=== PATIENT | female | born 1950 ===

== ENCOUNTER 2024-06-30 12:45 | Inpatient (IN) | payer OTHER ==
[~2024-06-30] VITALS: Ht 167.6 cm; Wt 109.8 kg
[2024-06-30] MEDS ORDERED: JANUVIA25 MG PO (13:31)
[2024-06-30] MEDS ORDERED: FUROSEMIDE20 MG PO (13:31)
[2024-06-30] MEDS ORDERED: SIMVASTATIN40 MG PO (13:31)
[2024-06-30] MEDS ORDERED: PROTONIX40 MG PO (13:32)
[2024-06-30] MEDS ORDERED: SYNTHROID100 MCG PO (13:32)
[2024-06-30] MEDS ORDERED: COMBIGAN EYE DRO5 ML OP (13:33)
[2024-06-30] MEDS ORDERED: ALDACTONE100 MG PO (13:33)
[2024-07-06] MEDS ORDERED: METRONIDAZOLE/SODIUM CHLORIDE 500 MG/100 ML PIGGYBACK IV ONE (07:04)
[2024-07-06] MEDS ORDERED: BUPIVACAINE HCL/Mpf 0.5% 10ML VIAL ONE (07:04)
[2024-07-06] MEDS ORDERED: LIDOCAINE HCL 1%/EPINEPHRINE 20ML VIAL IJ ONE (07:04)
[2024-07-06] MEDS ORDERED: levoFLOXacin IN DEXTROSE 5 % 5 MG/ML PIGGYBAG IV ONE (09:15)
[2024-07-06] MEDS ORDERED: 0.9 % SODIUM CHLORIDE 1,000 ML IV SCH (10:00)
[2024-07-06] MEDS ORDERED: OxyCODONE HCL 5 MG TABLET (ROXICODONE) PO PRN (10:00)
[2024-07-06] MEDS ORDERED: MORPHINE SULFATE 4 MG/ML CARTRIDGE IV PRN (10:00)
[2024-07-06] MEDS ORDERED: ONDANSETRON HCL 2 MG/ML VIAL IV PRN (10:00)
[2024-07-06] MEDS ORDERED: DEXTROSE 50 % IN WATER 0.5 G/ML DISP.SYRIN IV PRN ×2 (10:00→13:00)
[2024-07-06 11:33] LABS: HEMATOCRIT 33.1 % (36.0-45.00); HEMOGLOBIN 10.5 g/dL (12.0-15.00); MEAN CELL VOLUME 88.5 fL (80.00-100.00); MEAN CORPUSCULAR HEMOGLOBIN 28.1 pg (27.00-32.0); MEAN CORPUSCULAR HGB CONC 31.7 g/dl (32.0-36.0); PLATELET COUNT 198 K/uL (150-450); RED BLOOD COUNT 3.74 M/uL (4.00-6.00); RED CELL DISTRIBUTION WIDTH 14.7 % (11.5-14.5)
[2024-07-06 12:54] LABS: CALCIUM 8.3 mg/dL (8.5-10.1); CREATININE SERUM 1.92 mg/dL (0.55-1.02); GFR 25.67; PHOSPHOROUS 3.5 mg/dL (2.5-4.9); POTASSIUM 4.51 mEq/L (3.5-5.1)
[2024-07-06 13:00] LABS: MAGNESIUM 1.4 mg/dL (1.8-2.4)
[2024-07-06] MEDS ORDERED: ENALAPRILAT DIHYDRATE 1.25 MG/ML VIAL IV PRN (13:00)
[2024-07-06] MEDS ORDERED: INSULIN LISPRO 1,000 UNIT/10 ML UNITS SUBCUTANEO PRN (13:00)
[2024-07-06] MEDS ORDERED: HYOSCYAMINE SULFATE 0.125 MG TAB.SUBL SL SCH (13:00)
[2024-07-06] MEDS ORDERED: SOD FERRIC GLUC COMPLX/SUCROSE 62.5 MG in 0.9 % SODIUM CHLORIDE 50 ML IV NR (13:30)
[2024-07-06] MEDS ORDERED: LEVALBUTEROL HCL 0.63 MG/3 ML SOLUTION IH SCH (14:00)
[2024-07-06] MEDS ORDERED: ACETAMINOPHEN 500 MG GEL..CAP PO SCH (14:00)
[2024-07-06 14:56] VITALS: O2SAT 93
[2024-07-06 15:01] LABS: ABG PH 7.348 (7.35-7.45); ABG PO2 63.1 mmHg (80-100); ABG pCO2 38.7 mmHg (35-45); BASE EXCESS -4.3 mmol/l; SaO2 90.1 %
[2024-07-06 15:02] LABS: BICARBONATE 20.8 mmol/l (23-25); allen test SATISFACTORY; o2 21 %; puncture site RADIAL RIGHT
[2024-07-06 16:25] VITALS: BP 146/83; O2SAT 94
[2024-07-06 16:56] VITALS: O2SAT 90
[2024-07-06] MEDS ORDERED: METRONIDAZOLE/SODIUM CHLORIDE 500 MG/100 ML PIGGYBACK IV SCH (17:00)
[2024-07-06] MEDS ORDERED: POLYETHYLENE GLYCOL 3350 17 GM BLIST.PACK PO SCH (17:00)
[2024-07-06] MEDS ORDERED: GABAPENTIN 300 MG CAPSULE PO SCH (17:00)
[2024-07-06 19:32] VITALS: O2SAT 92
[2024-07-06] MEDS ORDERED: FAMOTIDINE/PF 20 MG/2 ML VIAL IV PUSH SCH (21:00)
[2024-07-07] VITALS (9 sets, daily range): BP systolic 124–153; BP diastolic 73–83; O2SAT 94–100
[2024-07-07] MEDS ORDERED: LEVOTHYROXINE SODIUM 100 MCG TABLET PO SCH (06:00)
[2024-07-07 06:21] LABS: HEMATOCRIT 32.4 % (36.0-45.00); HEMOGLOBIN 10.6 g/dL (12.0-15.00); MEAN CELL VOLUME 87.8 fL (80.00-100.00); MEAN CORPUSCULAR HEMOGLOBIN 28.7 pg (27.00-32.0); MEAN CORPUSCULAR HGB CONC 32.7 g/dl (32.0-36.0); PLATELET COUNT 187 K/uL (150-450); RED BLOOD COUNT 3.68 M/uL (4.00-6.00); RED CELL DISTRIBUTION WIDTH 14.1 % (11.5-14.5)
[2024-07-07] MEDS ORDERED: hydrALAZINE HCL 20 MG VIAL IV PRN (08:45)
[2024-07-07] MEDS ORDERED: SPIRONOLACTONE 50 MG TABLET PO SCH (09:00)
[2024-07-07] MEDS ORDERED: SOD FERRIC GLUC COMPLX/SUCROSE 62.5 MG in 0.9 % SODIUM CHLORIDE 50 ML IV SCH (09:00)
[2024-07-07 12:16] LABS: ALBUMIN 3.1 gm/dL (3.4-5.0); CALCIUM 8.4 mg/dL (8.5-10.1); CREATININE SERUM 1.93 mg/dL (0.55-1.02); GFR 25.52; PHOSPHOROUS 2.8 mg/dL (2.5-4.9); POTASSIUM 4.7 mEq/L (3.5-5.1)
[2024-07-07 12:54] LABS: MAGNESIUM 1.2 mg/dL (1.8-2.4)
[2024-07-07] MEDS ORDERED: MAGNESIUM SULFATE IN WATER 50 ML IV NR (13:15)
[2024-07-07] MEDS ORDERED: ENOXAPARIN SODIUM 30 MG/0.3 ML SYRINGE SUBCUTANEO SCH (17:00)
[2024-07-07] MEDS ORDERED: SIMVASTATIN 40 MG TABLET PO SCH (17:00)
[2024-07-08] VITALS (8 sets, daily range): BP systolic 114–138; BP diastolic 80–89; O2SAT 90–98
[2024-07-08] MEDS ORDERED: ENOXAPARIN SODIUM 30 MG/0.3 ML SYRINGE SUBCUTANEO SCH (09:00)
[2024-07-08 13:53] LABS: HEMATOCRIT 32.8 % (36.0-45.00); HEMOGLOBIN 10.9 g/dL (12.0-15.00); MEAN CELL VOLUME 87.2 fL (80.00-100.00); MEAN CORPUSCULAR HEMOGLOBIN 28.9 pg (27.00-32.0); MEAN CORPUSCULAR HGB CONC 33.1 g/dl (32.0-36.0); PLATELET COUNT 179 K/uL (150-450); RED BLOOD COUNT 3.77 M/uL (4.00-6.00); RED CELL DISTRIBUTION WIDTH 14.5 % (11.5-14.5)
[2024-07-08 14:39] LABS: CALCIUM 8.9 mg/dL (8.5-10.1); CREATININE SERUM 1.68 mg/dL (0.55-1.02); GFR 29.95; MAGNESIUM 1.8 mg/dL (1.8-2.4); PHOSPHOROUS 2.4 mg/dL (2.5-4.9); POTASSIUM 4.62 mEq/L (3.5-5.1)
[2024-07-08] MEDS ORDERED: POTASSIUM PHOS,M-BASIC-D-BASIC 3 MM/ML VIAL IV NR (17:00)
[2024-07-09 00:15] VITALS: O2SAT 95
[2024-07-09 00:46] VITALS: BP 139/80; O2SAT 98
[2024-07-09 03:23] VITALS: O2SAT 93
[2024-07-09 08:10] VITALS: BP 105/65; O2SAT 97
[2024-07-09 09:11] VITALS: O2SAT 93
[2024-07-09] MEDS ORDERED: HYOSCYAMINE0.125 M1 SL (13:08)
[2024-07-09] MEDS ORDERED: PEPCID AC20 MG PO (13:08)
[2024-07-09] MEDS ORDERED: TRAM1TAB98 PO (13:09)
[2024-07-09] MEDS ORDERED: INTEGRA F CAPS1 EACH PO (13:09)
[2024-07-09] MEDS ORDERED: ABANEU-SL TABL1 EACH SL (13:09)
[2024-07-09 13:23] VITALS: O2SAT 90
== END 2024-07-09 14:48 | disposition home or self-care (01) | DRG 330 ==
LOC: O/R 07-06 05:00 → SURH 07-06 05:00
PROVIDERS: Internal Medicine Geriatric Medicine; ADMIT Surgery; ATTEND Surgery
PROC: 07BB4ZZ Excision of Mesenteric Lymphatic, Percutaneous Endoscopic Approach (ICD-10-PCS; 2024-07-06)
PROC: 4A12X4Z Monitoring of Cardiac Electrical Activity, External Approach (ICD-10-PCS; 2024-07-06)
PROC: 0DTF4ZZ Resection of Right Large Intestine, Percutaneous Endoscopic Approach (ICD-10-PCS; principal; 2024-07-06 07:00)
DX: C18.0 Malignant neoplasm of cecum (principal); K92.1 Melena; J44.9 Chronic obstructive pulmonary disease, unspecified; N18.9 Chronic kidney disease, unspecified; E03.9 Hypothyroidism, unspecified; G47.33 Obstructive sleep apnea (adult) (pediatric); R59.0 Localized enlarged lymph nodes